=== PATIENT | male | born 1965 | race African-American/Black ===

== ENCOUNTER 2017-03-21 20:09 | Emergency (ER) | payer SELFPAY ==
[~2017-03-21] VITALS: Ht 175.3 cm; Wt 72.6 kg
[~2017-03-21 20:09] MED LIST: IBUP200T77 PO; ONDA4TAB10 SL; OSEL75CA PO
[2017-03-21 20:30] VITALS: BP 116/68
[2017-03-21] MEDS ORDERED: MORPHINE SULFATE 10 MG/ML VIAL. IM ONE (21:15)
[2017-03-21] MEDS ORDERED: DIPHTH,PERTUSS(ACELL),TET TOX 0.5 ML DISP.SYRIN. VAX IM ONE (21:15)
[2017-03-21] MEDS ORDERED: BUPIVACAINE 0.5% 50 ML VIAL. IJ ONE (21:15)
[2017-03-21] MEDS ORDERED: NEOMY/BACITR/POLYMYXIN OINT PACKET. TP ONE (22:30)
[2017-03-21] MEDS ORDERED: PIPERACILLIN/TAZOBACTAM 3.375 GM in IV NORMAL SALINE 50ML 50 ML IV ONE (22:30)
[2017-03-21] MEDS ORDERED: CEPH500T PO (23:01)
[2017-03-21] MEDS ORDERED: HYDR-971 PO (23:01)
--- NOTE | 2017-03-21 23:01 | PHYS DOC ---
Past Medical History Past Medical History: No Pertinent History Past Surgical History: Other Additional Past Surgical Histo: REMOVED A PORTION OF ESOPHAGUS Alcohol Use: Occasionally Drug Use: Cocaine, Marijuana Adult General Chief Complaint Chief Complaint: LACERATION/AVULSION HPI HPI Patient is a 52 year old male who presents with deep skin avulsions of the left middle finger and ring finger. Patient states he reached underneath a lawnmower and the blades cut him. Review of Systems Review of Systems Constitutional: Denies fever or chills [] Eyes: Denies change in visual acuity, redness, or eye pain [] Integument: deep skin avulsions of the left middle finger and ring finger. Neurologic: Denies headache, focal weakness or sensory changes [] Endocrine: Denies polyuria or polydipsia [] Current Medications Current Medications Current Medications Medications (Trade) Dose Ordered Sig/Kirsten Start Time Stop Time Status Last Admin Dose Admin Bupivacaine HCl (Marcaine 0.5%) 50 ml 1X ONCE 03/21/17 21:15 03/21/17 21:16 DC 03/21/17 21:01 50 ML Diphtheria/ Tetanus/Acell Pertussis (Boostrix) 0.5 ml ONCE ONCE 03/21/17 21:15 03/21/17 21:16 DC 03/21/17 21:03 0.5 ML Morphine Sulfate 5 mg 1X ONCE 03/21/17 23:15 03/21/17 23:16 DC 03/21/17 23:03 5 MG Neomycin/ Polymyxin/ Bacitracin (Triple Antibiotic Ointment) 2 pkt 1X ONCE 03/21/17 22:30 03/21/17 22:31 DC 03/21/17 22:29 2 PKT Piperacillin Sod/ Tazobactam Sod 3.375 gm/Sodium Chloride 50 ml @ 100 mls/hr 1X ONCE 03/21/17 22:30 03/21/17 22:59 DC 03/21/17 22:27 100 MLS/HR Allergies Allergies Allergies Coded Allergies Type Severity Reaction Last Updated Verified No Known Drug Allergies 11/16/16 No Physical Exam Physical Exam Constitutional: Well developed, well nourished, no acute distress, non-toxic appearance. [] HENT: Normocephalic, atraumatic, bilateral external ears normal, oropharynx moist, no oral exudates, nose normal. [] Skin: Left middle finger ventral aspect distal and with a skin avulsion approximately 1.5 x 2 centimeters. There is no obvious tendon involvement. Patient able to flex and extend the middle finger at the MIP PIP and DIP joints. Adequate radial and medial sensation to the left middle finger. Cap refill less than 2 seconds the left middle finger. Left ring finger distal and ventral aspect with a deep skin avulsion approximately 2 x 2 by 1 cm deep. There is no obvious tendon involvement. Patient able to flex and extend the finger at the MIP PIP and DIP joints. Adequate ulnar sensation to the left ring finger. Cap refill less than 2 seconds the left ring finger. Back: No tenderness, no CVA tenderness. [] Extremities: see skin assessment Neurologic: Alert and oriented X 3, normal motor function, normal sensory function, no focal deficits noted. [] Psychologic: Affect normal, judgement normal, mood normal. [] Current Patient Data Vital Signs Vital Signs Date Time Temp Pulse Resp B/P (MAP) Pulse Ox O2 Delivery O2 Flow Rate FiO2 03/21/17 21:02 Room Air 03/21/17 20:30 98.4 90 18 100 98.4 EKG EKG [] Radiology/Procedures Radiology/Procedures [] Course & Med Decision Making Course & Med Decision Making Pertinent Labs and Imaging studies reviewed. (See chart for details) Patient is in the ED with deep skin avulsions to the left middle finger and left ring finger. Left hand x-rays interpreted by Dr. Pineda were noted for tuft fracture of the left ring finger. Patient was given Zosyn IV in the ED. Both lacerations were cleaned thoroughly with 500 ML of normal saline and covered with nonstick dressing, gauze and a splint applied to both of them by me. Neurovascular exam done by me post splint application is normal to both fingers. Cap refill less than 2 seconds. Patient was discharged with instructions to contact Dr. Valles's office tomorrow and request an appointment with Dr. Santa the hand surgeon. He was discharged with cephalexin. Dragon Disclaimer Dragon Disclaimer This electronic medical record was generated, in whole or in part, using a voice recognition dictation system. Departure Departure Impression: Primary Impression: Open fracture of tuft of distal phalanx of finger Additional Impression: Skin avulsion Disposition: 01 HOME, SELF-CARE Condition: STABLE Referrals: NO PCP (PCP) LUIZA VALLES MD Please call Dr. Santa tomorrow he works at Dr. Valles's office and he will follow up with the fingers Patient Instructions: Deep Skin Avulsion, Finger Fracture Additional Instructions: You have left ring finger tuft fracture and skin avulsion of the left middle finger please take complete your antibiotics. Call Dr. Santa at the number provided and follow up as soon as you can. Scripts Hydrocodone/Apap 5-325 (NORCO 5-325 TABLET) 1 Each Tablet 1-2 TAB PO Q4-6HRS, #40 TAB Prov: CAYLA HURT APRN 03/21/17 Cephalexin (CEPHALEXIN) 500 Mg Tablet 1 TAB PO QID, #40 TAB Prov: CAYLA HURT APRN 03/21/17 Problem Qualifiers Primary Impression: Open fracture of tuft of distal phalanx of finger Encounter type: initial encounter Qualified Codes: S62.639B - Displaced fracture of distal phalanx of unspecified finger, initial encounter for open fracture CAYLA HURT APRN Mar 21, 2017 23:01
[2017-03-21] MEDS ORDERED: MORPHINE SULFATE 10 MG/ML VIAL. IV ONE (23:15)
--- NOTE | 2017-03-22 07:49 | RAD ---
Indication lawnmower injury. Laceration to the third and fourth digits. AP oblique and lateral views of the left hand were obtained. There is a possible nondisplaced fracture involving the tuft of the ring finger. The finding is not certain. An additional suggested fracture is not seen. A bandage over the hand is noted. Soft tissue injury associated with the long and ring fingers is noted.
== END 2017-03-21 23:15 | disposition home or self-care (01) ==
LOC: ER 20:09
DX: S62.635B Displaced fracture of distal phalanx of left ring finger, initial encounter for open fracture (principal); S61.303A Unspecified open wound of left middle finger with damage to nail, initial encounter; F12.10 Cannabis abuse, uncomplicated; F14.10 Cocaine abuse, uncomplicated; W27.8XXA Contact with other nonpowered hand tool, initial encounter; Y93.89 Activity, other specified; Y99.8 Other external cause status; Y92.89 Other specified places as the place of occurrence of the external cause
CPT/HCPCS: 29130; 73130; 90471; 90715; 96365; 96372; 96375; 99284; J2270; J2543; J3490; 96374

== ENCOUNTER 2018-12-23 19:19 | Emergency (ER) | payer SELFPAY ==
[~2018-12-23] VITALS: Ht 175.3 cm; Wt 62.6 kg
[~2018-12-23 19:19] MED LIST changes: +ASPI-630 PO; +CEPH500T PO; +HYDR-3164 PO
--- NOTE | 2018-12-23 19:45 | PHYS DOC ---
Past Medical History Past Medical History: No Pertinent History Past Surgical History: Other Additional Past Surgical Histo: REMOVED A PORTION OF ESOPHAGUS Alcohol Use: Occasionally Drug Use: Cocaine, Marijuana Adult General Chief Complaint Chief Complaint: ABDOMINAL PAIN HPI HPI Patient is a 53 year [id number] male presents by EMS for the evaluation of abdominal pain. Patient states abdominal pain started suddenly around 1700 hrs. while he was waiting for his bus. Patient's pain is located right upper quadrant described as sharp and nonradiating. Patient's pain has been present since onset but has mildly improved. Patient states she has some associated nausea but has not vomited he denies any diarrhea he has no chest pain he has no shortness of breath. Per EMS report patient had admitted to using meth. Patient was seen running up and down a hill. Patient tells me he was running up and down the cell because he was in significant pain. Patient denies any meth abuse. He admits to cigarette smoke and marijuana use. States he last smoked marijuana this a.m. Review of Systems Review of Systems Constitutional: Denies fever or chills [] Eyes: Denies change in visual acuity, redness, or eye pain [] HENT: Denies nasal congestion or sore throat [] Respiratory: Denies cough or shortness of breath [] Cardiovascular: No additional information not addressed in HPI [] GI: vomiting, bloody stools or diarrhea [positive nausea positive abdominal pain] : Denies dysuria or hematuria [] Musculoskeletal: Denies back pain or joint pain [] Integument: Denies rash or skin lesions [] Neurologic: Denies headache, focal weakness or sensory changes [] Endocrine: Denies polyuria or polydipsia [] All other systems were reviewed and found to be within normal limits, except as documented in this note. Current Medications Current Medications Current Medications Medications (Trade) Dose Ordered Sig/Kirsten Start Time Stop Time Status Last Admin Dose Admin Sodium Chloride 1,000 ml @ 1,000 mls/hr 1X ONCE 12/23/18 21:45 12/23/18 22:44 Allergies Allergies Allergies Coded Allergies Type Severity Reaction Last Updated Verified No Known Drug Allergies 11/16/16 No Physical Exam Physical Exam Constitutional: Well developed, well nourished, no acute distress, non-toxic appearance. [] HENT: Normocephalic, atraumatic, bilateral external ears normal, oropharynx moist, no oral exudates, nose normal. [] Eyes: PERRLA, EOMI, conjunctiva normal, no discharge. [] Neck: Normal range of motion, no tenderness, supple, no stridor. [] Cardiovascular:Heart rate regular rhythm, no murmur [] Lungs & Thorax: Bilateral breath sounds clear to auscultation [] Abdomen: Bowel sounds normal, soft, no tenderness, no masses, no pulsatile masses. [] Skin: Warm, dry, no erythema, no rash. [] Back: No tenderness, no CVA tenderness. [] Extremities: No tenderness, no cyanosis, no clubbing, ROM intact, no edema. [] Neurologic: Alert and oriented X 3, normal motor function, normal sensory function, no focal deficits noted. [] Psychologic: Affect normal, judgement normal, mood normal. [] Current Patient Data Vital Signs Vital Signs Date Time Temp Pulse Resp B/P (MAP) Pulse Ox O2 Delivery O2 Flow Rate FiO2 12/23/18 19:50 98.0 80 16 105/64 (78) 96 Room Air 98.0 Lab Values Laboratory Tests Test 12/23/18 20:20 12/23/18 20:25 White Blood Count 5.6 x10^3/uL (4.0-11.0) Red Blood Count 5.03 x10^6/uL (4.30-5.70) Hemoglobin 14.0 g/dL (13.0-17.5) Hematocrit 43.5 % (39.0-53.0) Mean Corpuscular Volume 86 fL (79-100) Mean Corpuscular Hemoglobin 28 pg (25-35) Mean Corpuscular Hemoglobin Concent 32 g/dL (31-37) Red Cell Distribution Width 15.3 % (11.5-14.5) H Platelet Count 158 x10^3/uL (140-400) Neutrophils (%) (Auto) 74 % (31-73) H Lymphocytes (%) (Auto) 15 % (24-48) L Monocytes (%) (Auto) 10 % (0-9) H Eosinophils (%) (Auto) 1 % (0-3) Basophils (%) (Auto) 1 % (0-3) Neutrophils # (Auto) 4.1 x10^3uL (1.8-7.7) Lymphocytes # (Auto) 0.8 x10^3/uL (1.0-4.8) L Monocytes # (Auto) 0.6 x10^3/uL (0.0-1.1) Eosinophils # (Auto) 0.1 x10^3/uL (0.0-0.7) Basophils # (Auto) 0.0 x10^3/uL (0.0-0.2) Sodium Level 144 mmol/L (136-145) Potassium Level 4.1 mmol/L (3.5-5.1) Chloride Level 109 mmol/L (98-107) H Carbon Dioxide Level 27 mmol/L (21-32) Anion Gap 8 (6-14) Blood Urea Nitrogen 10 mg/dL (8-26) Creatinine 1.4 mg/dL (0.7-1.3) H Estimated GFR (Cockcroft-Gault) 64.4 BUN/Creatinine Ratio 7 (6-20) Glucose Level 106 mg/dL (70-99) H Calcium Level 8.5 mg/dL (8.5-10.1) Total Bilirubin 0.3 mg/dL (0.2-1.0) Aspartate Amino Transferase (AST) 22 U/L (15-37) Alanine Aminotransferase (ALT) 35 U/L (16-63) Alkaline Phosphatase 57 U/L (46-116) Troponin I Quantitative < 0.017 ng/mL (0.000-0.055) Total Protein 5.9 g/dL (6.4-8.2) L Albumin 2.9 g/dL (3.4-5.0) L Albumin/Globulin Ratio 1.0 (1.0-1.7) Lipase 115 U/L (73-393) Urine Opiates Screen Neg (NEG) Urine Methadone Screen Neg (NEG) Urine Barbiturates Neg (NEG) Urine Phencyclidine Screen Pos (NEG) Urine Amphetamine/Methamphetamine Neg (NEG) Urine Benzodiazepines Screen Neg (NEG) Urine Cocaine Screen Pos (NEG) Urine Cannabinoids Screen Pos (NEG) Urine Ethyl Alcohol Neg (NEG) Laboratory Tests 12/23/18 20:20 Laboratory Tests 12/23/18 20:20 EKG EKG [] Radiology/Procedures Radiology/Procedures [] Course & Med Decision Making Course & Med Decision Making Pertinent Labs and Imaging studies reviewed. (See chart for details) []Results reviewed and discussed with patient. Patient was treated with 1 L ns. Patient requesting discharge. Dragon Disclaimer Dragon Disclaimer This electronic medical record was generated, in whole or in part, using a voice recognition dictation system. Departure Departure Impression: Primary Impression: Abdominal pain Additional Impression: Positive urine drug screen Disposition: HOME, SELF-CARE Condition: STABLE Referrals: NO PCP (PCP) Patient Instructions: Abdominal Pain, Alcohol and Drug Addiction, Finding Treatment Problem Qualifiers VERONICA VANG DO Dec 23, 2018 19:45
[2018-12-23] MEDS: IV NORMAL SALINE 1000ML BAG 1,000 ML IV ONE (20:20)
[2018-12-23 20:39] LABS: BASO % 1 % (0-3); EOS # 0.1 x10^3/uL (0.0-0.7); EOS % 1 % (0-3); HEMATOCRIT 43.5 % (39.0-53.0); LYMPH # 0.8 x10^3/uL (1.0-4.8); LYMPH % 15 % (24-48); MEAN CORPUSCULAR HEMOGLOBIN 28 pg (25-35); MEAN CORPUSCULAR HGB CONC 32 g/dL (31-37); MEAN CORPUSCULAR VOLUME 86 fL (79-100); MONO # 0.6 x10^3/uL (0.0-1.1); MONO % 10 % (0-9); NEUT # 4.1 x10^3uL (1.8-7.7); NEUT % 74 % (31-73); PLATELET COUNT 158 x10^3/uL (140-400); RED BLOOD COUNT 5.03 x10^6/uL (4.30-5.70); RED CELL DISTRIBUTION WIDTH 15.3 % (11.5-14.5); WHITE BLOOD COUNT 5.6 x10^3/uL (4.0-11.0)
[2018-12-23 20:45] LABS: CALCIUM 8.5 mg/dL (8.5-10.1); CREATININE 1.4 mg/dL (0.7-1.3); GFR 64.4; POTASSIUM 4.1 mmol/L (3.5-5.1)
[2018-12-23 20:51] LABS: ALBUMIN 2.9 g/dL (3.4-5.0); TOTAL BILIRUBIN 0.3 mg/dL (0.2-1.0); TOTAL PROTEIN 5.9 g/dL (6.4-8.2)
[2018-12-23 21:19] VITALS: BP 123/67
[2018-12-23 21:21] LABS: BARBITURATES NEG (NEG); BENZODIAZEPINES NEG (NEG); CANNABINOIDS POS (NEG); COCAINE POS (NEG); METHADONE NEG (NEG); OPIATES NEG (NEG); PHENCYCLIDINE POS (NEG)
[2018-12-23 21:22] LABS: AMPHETAMINE/METHAMPHETAMINE NEG (NEG)
[2018-12-23] MEDS ORDERED: IV NORMAL SALINE 1000ML BAG 1,000 ML IV ONE (21:45)
--- NOTE | 2018-12-24 01:20 | RAD ---
Indication:ER PATIENT. EPIGASTRIC ABDOMINAL PAIN X2 DAYS. NO SX HX. NO PRIORS TECHNIQUE:Acute abdominal series COMPARISON: None FINDINGS: Heart is normal in size. Lungs are clear. No pneumothorax or pleural effusion. Visualized bony thorax is within normal limits. No pneumoperitoneum. No abnormally dilated bowel loops or air-fluid levels. No abnormal calcific densities projecting over the kidneys to suggest apparent renal stones. Mild diffuse colonic stool burden. No acute fractures. IMPRESSION: No acute radiographic findings. Electronically signed by: Hieu Saleh DO (12/24/2018 1:17 AM) [facility]
--- NOTE | 2018-12-24 06:43 | EKG ---
[facility] [address] [place] [address] Test Date: 2018-12-23 Test Time: 20:30:00 Pat Name: BHUMI JEFFERSON Department: Room: Gender: M Cotton Program Technician: : 1965 Requested By: VERONICA VANG Order Number: [id number] Reading MD: Jace Garcia MD Measurements Intervals [place] Rate: 67 P: 66 RI: 156 QRS: 39 QRSD: 72 T: 30 QT: 374 QTc: 398 Interpretive Statements SINUS RHYTHM Electronically Signed On 01-02-2019 9:21:44 CDT by Jace Garcia MD
== END 2018-12-23 21:57 | disposition home or self-care (01) ==
LOC: ER 19:19
DX: R10.13 Epigastric pain (principal); R11.2 Nausea with vomiting, unspecified; R19.7 Diarrhea, unspecified; K92.1 Melena; R82.5 Elevated urine levels of drugs, medicaments and biological substances; F15.90 Other stimulant use, unspecified, uncomplicated; F17.210 Nicotine dependence, cigarettes, uncomplicated; F12.20 Cannabis dependence, uncomplicated
CPT/HCPCS: 36415; 74022; 80053; 80307; 83690; 84484; 85025; 93005; 96360; 99284; J7030